=== PATIENT | male | born 1995 ===

== ENCOUNTER 2019-09-19 18:32 | Emergency (ER) | payer OTHER ==
[2019-09-19 18:41] VITALS: BP 131/72
--- NOTE | 2019-09-19 18:51 | UC ---
FLU HPI - HPI Summary HPI Summary: patient started feeling poorly approx 48h ago, worse today with chills, headache , cough, fever he has been exposed to flu at work - History of Current Complaint Chief Complaint: UCRespiratory Stated Complaint: CHILLS Time Seen by Provider: 09/19/19 18:35 Hx Obtained From: Patient Onset/Duration: Sudden Onset Severity Currently: Mild Severity Initially: Moderate Pain Intensity: 5 Associated Signs & Symptoms: Positive: Fever, Cough, Sore Throat - 1 day Related Hx: Possible Flu/Infectious Exposure - Allergy/Home Medications Allergies/Adverse Reactions: Allergies Allergy/AdvReac Type Severity Reaction Status Date / Time No Known Allergies Allergy Verified 09/19/19 18:41 PMH/Surg Hx/FS Hx/Imm Hx Previously Healthy: Yes - Surgical History Surgical History: None - Family History Known Family History: Positive: None - Social History Occupation: Employed Full-time Lives: Alone Alcohol Use: Occasionally Substance Use Type: None Smoking Status (MU): Former Smoker Review of Systems All Other Systems Reviewed And Are Negative: Yes Constitutional: Positive: Fever, Chills, Fatigue Skin: Positive: Negative ENT: Positive: Negative Respiratory: Positive: Cough. Negative: Shortness Of Breath Cardiovascular: Positive: Negative Gastrointestinal: Positive: Negative Musculoskeletal: Positive: Myalgia Neurological: Positive: Negative Psychological: Positive: Negative Is Patient Immunocompromised?: No Physical Exam Triage Information Reviewed: Yes Appearance: Well-Appearing, No Pain Distress, Well-Nourished Vital Signs: Initial Vital Signs Temp 99.5 F 09/19/19 18:37 Pulse 100 09/19/19 18:37 Resp 16 09/19/19 18:37 BP 131/72 09/19/19 18:37 Pulse Ox 98 09/19/19 18:37 Vital Signs Reviewed: Yes Eye Exam: Normal Eyes: Positive: Conjunctiva Clear ENT: Positive: Pharynx normal, TMs normal. Negative: Nasal congestion Neck exam: Normal Neck: Positive: Supple, Nontender, No Lymphadenopathy Respiratory Exam: Normal Respiratory: Positive: Lungs clear Cardiovascular Exam: Normal Cardiovascular: Positive: RRR Neurological Exam: Normal Neurological: Positive: Alert Psychological Exam: Normal Skin Exam: Normal Flu Course/Dx - Differential Dx/Diagnosis Differential Diagnosis/HQI/PQRI: Influenza, Upper Respiratory Infection Provider Diagnosis: Influenza A Discharge ED - Sign-Out/Discharge Documenting (check all that apply): Patient Departure All imaging exams completed and their final reports reviewed: No Studies - Discharge Plan Condition: Good Disposition: HOME Prescriptions: Oseltamivir CAP* [Tamiflu CAP*] 75 mg PO BID #9 cap Patient Education Materials: Influenza (ED) Referrals: No Primary Care Phys,NOPCP [Primary Care Provider] - [facility] [place] [facility] [place] [facility] [place]] Additional Instructions: rest and drink plenty of fluids make sure you take your Tamiflu as prescribed use ibuprofen 600-800mg every 6 hours as needed for pain and fever (take with food) return if your symptoms worsen - Billing Disposition and Condition Condition: GOOD Disposition: Home
[2019-09-19 18:58] LABS: Influenza B Molecular POSITIVE (Negative)
[2019-09-19] MEDS ORDERED: Oseltamivir CAP* 75 MG CAP PO ONE (19:09)
== END 2019-09-19 19:20 | disposition home or self-care (01) ==
LOC: UCEAST 18:32
DX: J10.1 Influenza due to other identified influenza virus with other respiratory manifestations (principal); Z87.891 Personal history of nicotine dependence
CPT/HCPCS: 99202; A9270-GY; G0463